=== PATIENT | male | born 1960 | race Caucasian/White ===

== ENCOUNTER 2017-06-20 13:30 | Emergency (ER) | payer BC | END 2017-06-20 15:13 | disposition home or self-care (01) | LOC: ER 13:30 | DX: S00.83XA Contusion of other part of head, initial encounter (principal); M54.2 Cervicalgia; Z88.2 Allergy status to sulfonamides; W22.8XXA Striking against or struck by other objects, initial encounter; Y93.89 Activity, other specified; Y92.89 Other specified places as the place of occurrence of the external cause; Y99.8 Other external cause status | CPT/HCPCS: 70450; 72125; 99284-25 ==